=== PATIENT | male | born 1970 | race African-American/Black ===

== ENCOUNTER 2018-04-27 05:04 | Emergency (ER) | payer OTHER ==
[2018-04-27 06:04] LABS: Basophils # (Auto) 0.1 K/mm3 (0.0-0.1); Eosinophils # (Auto) 0.8 K/mm3 (0.0-0.4); Eosinophils % (Auto) 10.7 % (0.0-4.3); Hematocrit 43.5 % (35.5-45.6); Hemoglobin 14.6 gm/dl (11.8-15.2); Lymphocytes # (Auto) 2.1 K/mm3 (1.2-5.4); Lymphocytes % (Auto) 30.1 % (13.4-35.0); Mean Corpuscular HGB Conc 34 % (32-34); Mean Corpuscular Volume 89 fl (84-94); Monocytes # (Auto) 0.5 K/mm3 (0.0-0.8); Monocytes % (Auto) 7.1 % (0.0-7.3); Platelet Count 288 K/mm3 (140-440); Red Blood Count 4.87 M/mm3 (3.65-5.03)
--- NOTE | 2018-04-27 06:12 | Emergency Department Report ---
ED Fall HPI - General Chief Complaint: Fall Stated Complaint: WEAKNESS Time Seen by Provider: 04/27/18 06:11 Source: family Mode of arrival: Stretcher Limitations: Language Barrier - History of Present Illness Initial Comments: Patient is a 47-year-old male presents to emergency room with complaints of neck pain, back pain, fall and head injury. Patient's family is at bedside to translate. Patient does not speak Slovak. Patient denies loss of consc iousness. Patient states she fell from a standing position and hit his head after drinking drinking 3 bottles of beer. Patient denies headache. Patient states she is unable to move his arms and legs. Patient is not in a c-collar and was brought in by EMS. Patient denies pain in his legs and arms. Patient complains of loss of sensation. MD Complaint: fall -: Sudden Fall From: standing When Fall Occurred: 1-3 hours [employer] Fall Witnessed: no Place Fall Occurred: home Loss of Consciousness: none Prolonged Down Time?: no Symptoms Prior to Fall: none Location: head, neck, back Severity: moderate Severity scale (0 -10): 5 Quality: aching Context: alcohol use Associated Symptoms: neck pain, numbness, weakness, unable to walk. denies: chest paint, shortness of breath, abdominal pain, hematuria, lightheaded, vertigo, confusion - Related Data Allergies Allergy/AdvReac Type Severity Reaction Status Date / Time No Known Allergies Allergy Unverified 04/27/18 05:19 ED Review of Systems ROS: Stated complaint: WEAKNESS Other details as noted in HPI Constitutional: weakness. denies: chills, fever Eyes: denies: eye pain, eye discharge, vision change ENT: denies: ear pain, throat pain Respiratory: denies: cough, shortness of breath, wheezing Cardiovascular: denies: chest pain, palpitations Endocrine: no symptoms reported Gastrointestinal: denies: abdominal pain, nausea, diarrhea Genitourinary: denies: urgency, dysuria Musculoskeletal: denies: back pain, joint swelling, arthralgia Skin: denies: rash, lesions Neurological: weakness, paresthesias, abnormal gait. denies: headache Psychiatric: denies: anxiety, depression Hematological/Lymphatic: denies: easy bleeding, easy bruising ED Past Medical Hx - Past Medical History Previous Medical History?: Yes Hx Hypertension: Yes - Surgical History Past Surgical History?: No - Family History Family history: no significant - Social History Smoking Status: Smoker, Current Status Unknown Substance Use Type: Alcohol ED Physical Exam - General Limitations: Language Barrier General appearance: alert, in no apparent distress - Head Head exam: Present: normocephalic - Expanded Head Exam Expanded Head exam: Present: abrasion (rt forehead) - Eye Eye exam: Present: normal appearance, PERRL Pupils: Present: normal accommodation - ENT ENT exam: Present: mucous membranes dry - Neck Neck exam: Present: normal inspection, tenderness (c5- c6), full ROM - Respiratory Respiratory exam: Present: normal lung sounds bilaterally. Absent: respiratory distress - Cardiovascular Cardiovascular Exam: Present: regular rate, normal rhythm. Absent: systolic murmur, diastolic murmur, rubs, gallop - GI/Abdominal GI/Abdominal exam: Present: soft, normal bowel sounds - Rectal Rectal exam: Present: deferred - Extremities Exam Extremities exam: Present: normal inspection. Absent: full ROM, tenderness - Back Exam Back exam: Present: normal inspection. Absent: tenderness - Neurological Exam Neurological exam: Present: alert, oriented X3, motor sensory deficit (minimal movement of BUE AND no movement of BLE. decreased sensation in BLE AND BUE. ) - Expanded Neurological Exam Expanded Patient oriented to: Present: person, place, time Speech: Present: fluid speech Sensory exam: Upper Extremity Light Touch: Abnormal Right, Abnormal Left, Upper Extremity Pin Prick: Abnormal Right, Abnormal Left, Lower Extremity Light Touch: Abnormal Right, Abnormal Left, Lower Extremity Pin Prick: Abnormal Right, Abnormal Left Best Eye Response (Beatris): (4) open spontaneously Best Motor Response (Beatris): (1) no motor response Best Verbal Response (Beatris): (5) oriented Beatris Total: 10 - Skin Skin exam: Present: warm, dry, normal color, abrasion. Absent: rash ED Course Vital Signs 04/27/18 04/27/18 04/27/18 05:13 05:18 05:45 Temperature 97.4 F L 97.4 F L Pulse Rate 79 79 Respiratory 15 15 15 Rate Blood Pressure 104/49 Blood Pressure 104/49 [Left] O2 Sat by Pulse 96 96 96 Oximetry 04/27/18 04/27/18 06:00 08:00 Temperature Pulse Rate 77 81 Respiratory 12 14 Rate Blood Pressure 92/53 Blood Pressure 101/53 [Left] O2 Sat by Pulse 95 96 Oximetry - Reevaluation(s) Reevaluation #1: Initial evaluation done. Patient was placed in a c-collar until C-spine cleared 04/27/18 06:10 C-collar still intact. CT is all negative, however patient still unable to move upper and lower extremities. Patient still has decreased sensation in all extremities. 04/27/18 08:19 Discussed all results with patient and family. Patient and family agree with transfer and plan of care. Patient be transferred to [place] via EMS. Patient still unable to move his arms and legs. 04/27/18 09:53 - Consultations Consultation #1: Iain haas. Discussed case with [facility] attending and she recommends p atient be transferred to neurosurgery at [place] 04/27/18 08:40 Discussed case with neurosurgery at [place] and Dr. Magallon recommends patient be transferred to [place] trauma for further evaluation and MRI. 04/27/18 09:32 Discussed case with [place] trauma. Patient will be transferred ER to ER for further evaluation and treatment and MRI. Accepting physician is . 04/27/18 09:39 ED Medical Decision Making - Lab Data Result diagrams: 04/27/18 05:52 04/27/18 05:52 - EKG Data -: EKG Interpreted by Sd EKG shows normal: sinus rhythm, axis, intervals, QRS complexes, ST-T waves Rate: normal - Radiology Data Radiology results: report reviewed FINAL REPORT EXAM: CT CERVICAL SPINE WO CON HISTORY: pain. pain. fall. cannot move arms and legs. TECHNIQUE: CT imaging is acquired through the cervical spine without contrast. Transaxial, coronal and sagittal reformations are provided. PRIORS: None. FINDINGS: The cervical spine appears intact. There ossification of the posterior l ongitudinal ligament at C2- C3 best demonstrated on sagittal series 602, image 77 results in moderate narrowing of the spinal canal. Diffuse mild intervertebral disc space narrowing. Vertebral body heights are preserved . No acute fracture or listhesis. Atlanto-dens interval and odontoid process are intact. The imaged paraspinal soft tissues and mucosal spaces of the neck are remarkable for minimal carotid calcification. IMPRESSION: No acute cervical spine fracture identified. There is thickening and calcification of the posterior longitudinal ligament at C2-C3 resulting in at least moderate spinal canal stenosis. Correlate with physical exam and follow up as warranted. Transcribed By: NELLY Dictated By: REBECCA ULRICH MD Electronically Authenticated By: REBECCA ULRICH MD Signed Date/Time: 04/27/18734 FINAL REPORT EXAM: CT HEAD/BRAIN WO CON HISTORY: pain. head injury fall. TECHNIQUE: CT imaging is acquired through the brain without contrast. Transaxial reformations are provided. PRIORS: None. FINDINGS: Ventricles and CSF spaces are proportionately enlarged, consistent with parenchymal atrophy. Scattered deep and subcortical white matter hypodense foci are confluent in some areas and are compatible with microvascular angiopathy. No acute intracranial hemorrhage or mass effect. No skull fracture. No significant abnormality within the imaged paranasal sinuses or mastoid air cells. IMPRESSION: No acute intracranial abnormality. There are chronic sequela of atrophy and microvascular angiopathy. Transcribed By: NELLY Dictated By: REBECCA ULRICH MD Electronically Authenticated By: REBECCA ULRICH MD Signed Date/Time: 04/27/1867 FINAL REPORT EXAM: CT LUMBAR SPINE WO CON HISTORY: pain. fall. cannot move arms and legs. TECHNIQUE: Multisequence, multiplanar MR imaging is obtained through the lumbar spine without contrast PRIORS: None. FINDINGS: Lumbar lordosis and vertebral body heights are preserved. Marrow signal is within normal limits. No fracture or infiltrative process. No listhesis. The conus terminates at the L1 level. Cauda equina is normal in caliber and signal characteristics. The paraspinal soft tissues to include the imaged portions of the abdomen and pelvis are without significant signal abnormality. There is mild intervertebral disc space narrowing at L4-L5 and L5-S1 with small posterior disc bulges and [id number] right greater than left facet arthropathy resulting mild spinal canal stenosis and bilateral neural foraminal narrowing. IMPRESSION: Sequela of disc degeneration in the lower lumbar spine results in mild spinal canal and neural foraminal stenosis at L4-L5 and L5-S1. Consider follow-up MRI as warranted. Transcribed By: NELLY Dictated By: REBECCA ULRICH MD Electronically Authenticated By: REBECCA ULRICH MD Signed Date/Time: 04/27/18740 FINAL REPORT EXAM: CT THORACIC SPINE WO CON HISTORY: pain. fall. cannot move arms and legs. TECHNIQUE: CT images are acquired through the thoracic spine without contrast. Transaxial , coronal and sagittal reformations are provided. PRIORS: None. FINDINGS: Thoracic kyphosis is intact. There is upper to mid thoracic diffuse idiopathic skeletal hyperostosis. No malalignment. Posterior endplate bridging osteophytes at T1-T2 with probably mild spinal canal stenosis. Vertebral body heights and intervertebral disc spaces are preserved. No listhesis, spondylolysis or other fracture. Paraspinal soft tissues and imaged portions of the chest demonstrate an unremarkable noncontrast appearance. IMPRESSION: No acute thoracic spine fracture or malalignment. Posterior endplate bridging osteophyte at T1-T2 resultant probably mild spinal canal stenosis. Diffuse idiopathic skeletal hyperostosis involving the mid and upper thoracic spine. Transcribed By: MB Dictated By: REBECCA ULRICH MD Electronically Authenticated By: REBECCA ULRICH MD Signed Date/Time: 04/27/18 0739 - Medical Decision Making She is a 47-year-old male that sustained a fall and head injury at home today. Patient has not been able to ambulate or move his legs or arms since the fall. Patient has normal CT scans that did not demonstrate a fracture. Patient will be transferred to [facility] for further evaluation treatment MRI. [facility] physician agrees with transfer. - Differential Diagnosis fall. quad. cord injury. head injury. Critical Care Time: Yes Critical care attestation.: If time is entered above; I have spent that time in minutes in the direct care of this critically ill patient, excluding procedure time. Critical Care Time: 80 minutes ED Disposition Clinical Impression: Loss of sensation of saddle area and both lower extremities, Acute complete quadriplegia Lower extremity paralysis Qualifiers: Monoplegia etiology: unspecified etiology Monoplegia laterality: unspecified laterality Qualified Code(s): G83.10 - Monoplegia of lower limb affecting unspecified side Fall Qualifiers: Encounter type: initial encounter Qualified Code(s): W19.XXXA - Unspecified fall, initial encounter Head injury Qualifiers: Encounter type: initial encounter Qualified Code(s): S09.90XA - Unspecified injury of head, initial encounter Scalp abrasion Qualifiers: Encounter type: initial encounter Qualified Code(s): S00.01XA - Abrasion of scalp, initial encounter Alcohol intoxication Qualifiers: Complication of substance-induced condition: with unspecified complication Qualified Code(s): F10.929 - Alcohol use, unspecified with intoxication, unspecified Disposition: DC/TX-70 ANOTHER TYPE HLTHCARE Is pt being admited?: No Does the pt Need Aspirin: No Condition: Critical Time of Disposition: 09:49
[2018-04-27 06:51] LABS: Alanine Aminotransferase 32 units/L (7-56); Albumin 4.2 g/dL (3.9-5); BUN/Creatinine Ratio 19; Blood Urea Nitrogen 13 mg/dL (9-20); Hemolysis Index 7
[2018-04-27] MEDS ORDERED: VITAMIN B-1 100 MG, FOLVITE 1 MG, INFUVITE 10 ML in NACL 0.9% 1000 ML 1,000 ML IV ONE (07:18)
--- NOTE | 2018-04-27 07:33 | Cat Scan Report ---
FINAL REPORT EXAM: CT HEAD/BRAIN WO CON HISTORY: pain. head injury fall. TECHNIQUE: CT imaging is acquired through the brain without contrast. Transaxial reformations are provided. PRIORS: None. FINDINGS: Ventricles and CSF spaces are proportionately enlarged, consistent with parenchymal atrophy. Scattere d deep and subcortical white matter hypodense foci are confluent in some areas and are compatible wit h microvascular angiopathy. No acute intracranial hemorrhage or mass effect. No skull fracture. No significant abnormality within the imaged paranasal sinuses or mastoid air cell s. IMPRESSION: No acute intracranial abnormality. There are chronic sequela of atrophy and microvascular angiopathy.
--- NOTE | 2018-04-27 07:35 | Cat Scan Report ---
FINAL REPORT EXAM: CT CERVICAL SPINE WO CON HISTORY: pain. pain. fall. cannot move arms and legs. TECHNIQUE: CT imaging is acquired through the cervical spine without contrast. Transaxial, coronal a nd sagittal reformations are provided. PRIORS: None. FINDINGS: The cervical spine appears intact. There ossification of the posterior longitudinal ligament at C2-C3 best demonstrated on sagittal series 602, image 77 results in moderate narrowing of the spinal canal . Diffuse mild intervertebral disc space narrowing. Vertebral body heights are preserved . No acute f racture or listhesis. Atlanto-dens interval and odontoid process are intact. The imaged paraspinal so ft tissues and mucosal spaces of the neck are remarkable for minimal carotid calcification. IMPRESSION: No acute cervical spine fracture identified. There is thickening and calcification of the posterior l ongitudinal ligament at C2-C3 resulting in at least moderate spinal canal stenosis. Correlate with ph ysical exam and follow up as warranted.
--- NOTE | 2018-04-27 07:39 | Cat Scan Report ---
FINAL REPORT EXAM: CT THORACIC SPINE WO CON HISTORY: pain. fall. cannot move arms and legs. TECHNIQUE: CT images are acquired through the thoracic spine without contrast. Transaxial , coronal and sagittal reformations are provided. PRIORS: None. FINDINGS: Thoracic kyphosis is intact. There is upper to mid thoracic diffuse idiopathic skeletal hyperostosis. No malalignment. Posterior endplate bridging osteophytes at T1-T2 with probably mild spinal canal st enosis. Vertebral body heights and intervertebral disc spaces are preserved. No listhesis, spondylol ysis or other fracture. Paraspinal soft tissues and imaged portions of the chest demonstrate an unrem arkable noncontrast appearance. IMPRESSION: No acute thoracic spine fracture or malalignment. Posterior endplate bridging osteophyte at T1-T2 resultant probably mild spinal canal stenosis. Diffuse idiopathic skeletal hyperostosis involving the mid and upper thoracic spine.
--- NOTE | 2018-04-27 07:41 | Cat Scan Report ---
FINAL REPORT EXAM: CT LUMBAR SPINE WO CON HISTORY: pain. fall. cannot move arms and legs. TECHNIQUE: Multisequence, multiplanar MR imaging is obtained through the lumbar spine without contra st PRIORS: None. FINDINGS: Lumbar lordosis and vertebral body heights are preserved. Marrow signal is within normal limits. No f racture or infiltrative process. No listhesis. The conus terminates at the L1 level. Cauda equina is normal in caliber and signal characteristics. The paraspinal soft tissues to include the imaged porti ons of the abdomen and pelvis are without significant signal abnormality. There is mild intervertebral disc space narrowing at L4-L5 and L5-S1 with small posterior disc bulges and [id number] right greater than left facet arthropathy resulting mild spinal canal stenosis and bilateral neural foraminal narrowing. IMPRESSION: Sequela of disc degeneration in the lower lumbar spine results in mild spinal canal and neural forami nal stenosis at L4-L5 and L5-S1. Consider follow-up MRI as warranted.
[2018-04-27 07:59] LABS: Bilirubin,Urine NEG (Negative); Blood,Urine NEG (Negative); Color,Urine Colorless (Yellow); Protein,Urine <15 mg/dL mg/dL (Negative); RBC,Urine < 1.0 /HPF (0.0-6.0); Urobilinogen,Urine < 2.0 mg/dL (<2.0)
[2018-04-27 08:02] LABS: WBC,Urine < 1.0 /HPF (0.0-6.0)
[2018-04-27 08:08] LABS: Amphetamine Screen,Urine PRESUMPTIVE NEGATIVE; Benzodiazepines Screen,Urine PRESUMPTIVE NEGATIVE; Cannabinoid Screen,Urine PRESUMPTIVE NEGATIVE; Cocaine Screen,Urine PRESUMPTIVE NEGATIVE; Methadone Screen,Urine PRESUMPTIVE NEGATIVE; Opiate Screen,Urine PRESUMPTIVE NEGATIVE
[2018-04-27 08:27] VITALS: BP 101/53
== END 2018-04-27 10:54 | disposition other institution (70) ==
LOC: ED 05:04
DX: S00.01XA Abrasion of scalp, initial encounter (principal); G82.51 Quadriplegia, C1-C4 complete; G83.10 Monoplegia of lower limb affecting unspecified side; R20.8 Other disturbances of skin sensation; F10.129 Alcohol abuse with intoxication, unspecified; I10 Essential (primary) hypertension; F17.200 Nicotine dependence, unspecified, uncomplicated; W18.30XA Fall on same level, unspecified, initial encounter; Y93.89 Activity, other specified; Y92.009 Unspecified place in unspecified non-institutional (private) residence as the place of occurrence of the external cause; Y99.8 Other external cause status
CPT/HCPCS: 36415; 70450; 72125; 72128; 72131; 80053; 80307; 81001; 82962; 85025; 93005; 93010; 96365; 96366; 99291; 99292; G0480; J3411; J7030; 80320